=== PATIENT | female | born 1975 | race Two or more races ===

== ENCOUNTER 2024-12-28 08:10 | Emergency (ER) | payer OTHER ==
[~2024-12-28] VITALS: Ht 152.4 cm; Wt 65.8 kg
[2024-12-28] MEDS ORDERED: TOPROL XL50 M1 PO (08:28)
[2024-12-28] MEDS ORDERED: SYNTHROID50 MCG PO (08:28)
[2024-12-28] MEDS ORDERED: JARDIANCE25 MG PO (08:29)
[2024-12-28] MEDS ORDERED: XARELTO20 MG (08:29)
[2024-12-28] MEDS ORDERED: FLECAINIDE ACET50 MG PO (08:29)
[2024-12-28] MEDS ORDERED: RINGERS SOLUTION,LACTATED 1,000 ML IV STA (08:46)
[2024-12-28] MEDS ORDERED: ONDANSETRON HCL 2 MG/ML VIAL IV STA (08:46)
[2024-12-28] MEDS ORDERED: FAMOTIDINE/PF 20 MG/2 ML VIAL IV PUSH STA (08:47)
[2024-12-28] MEDS ORDERED: FAMOTIDINE/PF 20 MG/2 ML VIAL ONE (09:07)
[2024-12-28] MEDS ORDERED: ONDANSETRON HCL 2 MG/ML VIAL ONE (09:07)
[2024-12-28 09:37] LABS: BASO % 0.3 % (0.1-1.2); EOS # 0.02 (0.04-0.54); EOS % 0.3 % (0.7-7.0); LYMPH # 0.55 (1.18-3.74); LYMPH % 8.5 % (19.3-53.1); MEAN PLATELET VOLUME 9.10 fl (9.4-12.4); MONO # 0.30 (0.24-0.82); MONO % 4.6 % (4.7-12.5); NEUT # 5.57 (1.56-6.13); NEUT % 86.1 % (34.0-71.1); RED CELL DISTRIBUTION WIDTH 13.5 % (11.6-14.4)
[2024-12-28 10:25] LABS: ALT/SGPT 23.0 U/L (12-78); AST/SGOT 14.0 U/L (15-37); BILIRUBIN TOTAL 0.88 mg/dL (0.3-1.2); BUN CREA RATIO 12.0 (7.0-25.0); CREATININE SERUM 0.76 mg/dL (0.55-1.02); GFR 80.55; GLOBULINA 3.3 G/DL (2.4-3.5); GLUCOSE FASTING 85.0 mg/dL (65-100); OSMOLALITY SERUM 277.0 MOSM/KG (275-295)
[2024-12-28] MEDS ORDERED: PANTOPRAZOLE SODIUM 40 MG/VIAL VIAL IV PUSH STA (10:29)
[2024-12-28 13:08] VITALS: BP 116/78; O2SAT 99
== END 2024-12-28 13:10 | disposition home or self-care (01) ==
LOC: ER 08:10
PROVIDERS: General Practice
DX: K29.60 Other gastritis without bleeding (principal)